=== PATIENT | male | born 1975 | race Caucasian/White ===

== ENCOUNTER 2021-09-18 14:20 | Outpatient (CLI) | payer OTHER, SELFPAY | END 2021-09-18 14:21 | disposition home or self-care (01) | LOC: ANHBWCAUD 14:21 | PROVIDERS: PCP Family Medicine; Visit Provider Otolaryngology | DX: H93.12 Tinnitus, left ear (principal); H81.09 Meniere's disease, unspecified ear; H90.42 Sensorineural hearing loss, unilateral, left ear, with unrestricted hearing on the contralateral side | CPT/HCPCS: 92557; 92567 ==

== ENCOUNTER 2021-10-03 11:03 | Outpatient (CLI) | payer OTHER, SELFPAY ==
--- NOTE | ~2021-10-03 | MR_ITS ---
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 Dizziness. TECHNIQUE: Magnetic resonance imaging (MRI) of the brain, brainstem, and internal auditory canals was performed without and with 18 mL MultiHance intravenous contrast. COMPARISON: None. FINDINGS: There is no intracranial hemorrhage, acute infarction, or abnormal intracranial mass lesion . The ventricles are normal in size. The orbits are normal. The paranasal sinuses are clear. The inte rnal auditory canals and inner and middle ears are normal. The mastoid air cells are normal. IMPRESSION: 1. Normal brain. Reviewed, dictated and finalized at location A. IMPRESSION: 1. Normal brain.
== END 2021-10-03 11:04 | disposition home or self-care (01) ==
PROVIDERS: PCP Family Medicine; Visit Provider Otolaryngology
DX: H93.12 Tinnitus, left ear (principal); H91.8X9 Other specified hearing loss, unspecified ear; H81.09 Meniere's disease, unspecified ear
CPT/HCPCS: 70553; A9577

== ENCOUNTER 2023-07-12 10:57 | Outpatient (CLI) | payer BC, SELFPAY | END 2023-07-12 10:58 | disposition home or self-care (01) | LOC: ANHBWCAUD 10:58 | PROVIDERS: PCP Family Medicine; Visit Provider Otolaryngology | DX: H81.09 Meniere's disease, unspecified ear (principal); H91.92 Unspecified hearing loss, left ear | CPT/HCPCS: 92557; 92567 ==

== ENCOUNTER 2024-10-25 15:50 | Outpatient (CLI) | payer BC, SELFPAY ==
--- NOTE | ~2024-10-25 | CT_ITS ---
EXAMINATION: CT abdomen pelvis wo con DATE: 10/25/2024 16:11 INDICATION: Left upper quadrant abdominal pain TECHNIQUE: Computed tomography (CT) of the abdomen and pelvis was performed without intravenous contrast. Automated exposure control and iterative reconstruction technique were employed. The dose-length product was 530.48 mGy-cm. COMPARISON: None FINDINGS: Lung bases are clear. Heart size is normal. No pericardial or pleural effusion. Liver, decompressed gallbladder, spleen, pancreas and bilateral adrenal glands are normal. Kidneys and ureters are normal with no urolithiasis, hydroureteronephrosis or perinephric/ureteral stranding. Moderate amount of sto ol throughout the colon. Small bowel and appendix are normal. Bladder is normal. No free intraperitoneal gas or fluid. No pathologically enlarged abdominal or pelvic lymphadenopathy. Severe spondylosis at L5-S1 and L5 spondylolysis with bilateral pars intra-articular is defects and 5 mm anterolisthesis on S1. IMPRESSION: 1. No acute intra-abdominal/pelvic process. Reviewed, dictated and finalized at location A.
== END 2024-10-25 15:51 | disposition home or self-care (01) ==
PROVIDERS: PCP Family Medicine; Visit Provider Nurse Practitioner Adult Health
DX: R10.12 Left upper quadrant pain (principal); R10.9 Unspecified abdominal pain
CPT/HCPCS: 74176